=== PATIENT | female | born 1950 | race Asian ===

== ENCOUNTER 2021-02-04 08:48 | Emergency (ER) | payer MEDICARE, OTHER ==
[2021-02-04] MEDS ORDERED: AMOXICILLIN875 MG PO (10:41)
[2021-02-04] MEDS ORDERED: NORCO 5-325 TA1 EACH PO (10:41)
== END 2021-02-04 10:56 | disposition home or self-care (01) ==
LOC: FER 08:48
DX: K02.9 Dental caries, unspecified (principal); K04.01 Reversible pulpitis
CPT/HCPCS: 99282